=== PATIENT | male | born 1975 | race Hispanic/Latino ===

== ENCOUNTER 2021-07-29 18:04 | Emergency (ER) | payer SELFPAY ==
--- NOTE | 2021-07-29 19:03 | Emergency Department Report ---
HPI - General Chief Complaint: Abdominal Pain Time Seen by Provider: 07/29/21 18:42 - HPI HPI: Room 34 The patient is a 45-year-old male present with a chief complaint of flank pain. The patient states approximate 4.5 hours ago he developed sharp pain in his right flank that feels similar to previous kidney stones. The patient states his urine was brown in color but he denies dysuria. Patient denies history of fever or nausea/vomiting. Patient currently gives his pain a score 7.5/10. Patient states he took a tramadol 2.5 hours prior to arrival and states it is kicking in improving his pain ED Past Medical Hx - Past Medical History Hx Hypertension: Yes Additional medical history: KIDNEY STONE - Surgical History Past Surgical History?: No - Family History Family history: no significant - Social History Substance Use Type: None (Denies illicit drug use), Alcohol (Occasional) - Medications Home Medications: Home Medications Medication Instructions Recorded Confirmed Last Taken Type HYDROcodone/APAP 5-325 [Prospect 1 each PO Q6HR PRN #7 tablet 07/29/21 Unknown Rx 5/325] levoFLOXacin [Levaquin] 750 mg PO QDAY #7 tablet 07/29/21 Unknown Rx ED Review of Systems ROS: Stated complaint: POSS KIDNEY STONE Other details as noted in HPI Constitutional: denies: fever Eyes: denies: eye pain ENT: denies: throat pain Respiratory: no symptoms reported Cardiovascular: denies: chest pain Endocrine: no symptoms reported Gastrointestinal: abdominal pain. denies: nausea, vomiting Genitourinary: hematuria. denies: dysuria Musculoskeletal: denies: back pain Neurological: denies: headache Physical Exam - Physical Exam Vital Signs: Vital Signs 07/29/21 18:20 Temperature 97.5 F L Pulse Rate 88 Respiratory 20 Rate Blood Pressure 183/105 [Right] O2 Sat by Pulse 99 Oximetry Physical Exam: GENERAL: The patient is well-developed well-nourished male sitting on stretcher not appearing to be in acute distress. [] HEENT: Normocephalic. Atraumatic. Extraocular motions are intact. Patient has moist mucous membranes. NECK: Supple. Trachea midline CHEST/LUNGS: Clear to auscultation. There is no respiratory distress noted. HEART/CARDIOVASCULAR: Regular. There is no tachycardia. There is no gallop rub or murmur. ABDOMEN: Abdomen is soft, nontender. Patient has normal bowel sounds. There is no abdominal distention. SKIN: There is no rash. There is no edema. There is no diaphoresis. NEURO: The patient is awake, alert, and oriented. The patient is cooperative. The patient has no focal neurologic deficits. The patient has normal speech. GCS 15 MUSCULOSKELETAL: There is no CVA tenderness bilateral. There is no evidence of acute injury. ED Course Vital Signs 07/29/21 18:20 Temperature 97.5 F L Pulse Rate 88 Respiratory 20 Rate Blood Pressure 183/105 [Right] O2 Sat by Pulse 99 Oximetry ED Medical Decision Making - Lab Data Result diagrams: 07/29/21 19:04 07/29/21 19:04 Laboratory Tests 07/29/21 07/29/21 07/29/21 19:04 19:04 19:04 WBC 7.4 RBC 5.29 H Hgb 14.9 Hct 45.1 MCV 85 MCH 28 MCHC 33 RDW 14.8 Plt Count 282 Lymph % (Auto) 15.3 Montgomery % (Auto) 5.4 Eos % (Auto) 1.4 Baso % (Auto) 1.1 Lymph # (Auto) 1.1 L Montgomery # (Auto) 0.4 Eos # (Auto) 0.1 Baso # (Auto) 0.1 Seg Neutrophils % 76.8 H Seg Neutrophils # 5.7 Sodium 140 Potassium 3.6 Chloride 105.4 Carbon Dioxide 22 Anion Gap 16 BUN 15 Creatinine 1.0 Estimated GFR > 60 BUN/Creatinine Ratio 15 Glucose 135 H Calcium 9.5 Total Creatine Kinase 86 Urine Color Urine Turbidity Urine pH Ur Specific Stella Urine Protein Urine Glucose (UA) Urine Ketones Urine Blood Urine Nitrite Urine Bilirubin Urine Urobilinogen Ur Leukocyte Esterase Urine WBC (Auto) Urine RBC (Auto) U Epithel Cells (Auto) Urine Mucus 07/29/21 20:16 WBC RBC Hgb Hct MCV MCH MCHC RDW Plt Count Lymph % (Auto) Montgomery % (Auto) Eos % (Auto) Baso % (Auto) Lymph # (Auto) Montgomery # (Auto) Eos # (Auto) Baso # (Auto) Seg Neutrophils % Seg Neutrophils # Sodium Potassium Chloride Carbon Dioxide Anion Gap BUN Creatinine Estimated GFR BUN/Creatinine Ratio Glucose Calcium Total Creatine Kinase Urine Color Yellow Urine Turbidity Slightly-cloudy Urine pH 7.0 Ur Specific Stella 1.014 Urine Protein <15 mg/dl Urine Glucose (UA) Neg Urine Ketones Neg Urine Blood Lg Urine Nitrite Neg Urine Bilirubin Neg Urine Urobilinogen < 2.0 Ur Leukocyte Esterase Tr Urine WBC (Auto) 18.0 H Urine RBC (Auto) > 182.0 U Epithel Cells (Auto) 7.0 Urine Mucus 1+ - Radiology Data Radiology results: report reviewed (CT abdomen pelvis), image reviewed (CT abdomen pelvis) [facility] [address] [place] [address] Cat Scan Report Signed Patient: ELLE PAMLER MR#: [id number] : 1975 Acct:[id number] Age/Sex: 45 / M ADM Date: 07/29/21 Loc: ED Attending Dr: Ordering Physician: JOAQUINA SANZ MD Date of Service: 07/29/21 Procedure(s): CT abdomen pelvis wo con Accession Number(s): [id number] cc: JOAQUINA SANZ MD CT ABDOMEN AND PELVIS WITHOUT IV CONTRAST INDICATION: Right flank pain. COMPARISON: None available. TECHNIQUE: All CT scans at this facility use dose modulation, automated exposure control, iterative reconstruction or weight based dosing, when appropriate, to reduce radiation dose to as low as reasonably achievable. FINDINGS: Lung Bases: No significant abnormality. Skeletal System: No acute abnormality. ABDOMEN: Liver: No significant abnormality. Gallbladder: No significant abnormality. Bile Ducts: No significant abnormality. Adrenals: No significant abnormality. Right Kidney: There is a punctate nonobstructing calyceal stone. There is mild dilatation of the right renal collecting system and proximal right ureter. No right ureteral stone is seen. Left Kidney: There is a single punctate nonobstructing calyceal stone. Pancreas: No significant abnormality. Spleen: No significant abnormality. Upper GI tract: No significant abnormality. Lymph Nodes: No significant adenopathy. Aorta: No significant abnormality. Additional Findings: There is mild stranding/haziness in the me sentery with associated shotty nodes. PELVIS: Colon: No acute abnormality. Diverticulosis is noted. Urinary Bladder and Distal Ureters: No significant abnormality. Appendix: No significant abnormality. Lymph Nodes: No significant adenopathy. Additional Findings: None. IMPRESSION: 1. There is very mild right hydronephrosis. No right ureteral stone is seen. This could be due to a recently passed stone. CT without contrast is relatively insensitive for pyelonephritis. 2. Incidental findings, as above. Signer Name: Fred Mustafa MD Signed: 07/29/2021 7:34 PM Workstation Name: [id number] Transcribed By: HERON Dictated By: Fred Mustafa MD Electronically Authenticated By: Fred Mustafa MD Signed Date/Time: 07/29/211933 DD/ 29 TD/TT: Print Cancel - Differential Diagnosis Renal colic, pyelonephritis Critical care attestation.: If time is entered above; I have spent that time in minutes in the direct care of this critically ill patient, excluding procedure time. ED Disposition Clinical Impression: Renal colic on right side, UTI (urinary tract infection) Disposition: HOME / SELF CARE / HOMELESS Is pt being admited?: No Does the pt Need Aspirin: No Condition: Stable Instructions: Urinary Tract Infection, Adult, [id number], Renal Colic, [id number] Additional Instructions: Return to the emergency department should you develop worsening symptoms, inability to tolerate food or liquids, high fever or any other concerns Prescriptions: levoFLOXacin [Levaquin] 750 mg PO QDAY #7 tablet HYDROcodone/APAP 5-325 [Prospect 5/325] 1 each PO Q6HR PRN #7 tablet PRN Reason: Pain Referrals: LUCIA BARNEY MD [Staff Physician] - 3-5 Days (Dr. Barney is a urologist. Please follow-up with him for further evaluation) Time of Disposition: 22:21
[2021-07-29] MEDS ORDERED: ONDANSETRON 4 MG/2 ML INJ IM PRN (19:04)
[2021-07-29] MEDS ORDERED: fentaNYL 100 MCG/2 ML INJ IM PRN (19:04)
[2021-07-29] MEDS ORDERED: KETOROLAC 60 MG/2 ML INJ IM PRN (19:05)
[2021-07-29 19:30] LABS: Basophils # (Auto) 0.1 K/mm3 (0.0-0.1); Basophils % (Auto) 1.1 % (0.0-1.8); Eosinophils # (Auto) 0.1 K/mm3 (0.0-0.4); Eosinophils % (Auto) 1.4 % (0.0-4.3); Hematocrit 45.1 % (35.5-45.6); Hemoglobin 14.9 gm/dl (11.8-15.2); Lymphocytes # (Auto) 1.1 K/mm3 (1.2-5.4); Lymphocytes % (Auto) 15.3 % (13.4-35.0); Mean Corpuscular HGB Conc 33 % (32-34); Mean Corpuscular Volume 85 fl (84-94); Monocytes # (Auto) 0.4 K/mm3 (0.0-0.8); Monocytes % (Auto) 5.4 % (0.0-7.3); Platelet Count 282 K/mm3 (140-440); Red Blood Count 5.29 M/mm3 (3.65-5.03); Red Cell Distribution Width 14.8 % (13.2-15.2)
--- NOTE | 2021-07-29 19:38 | Cat Scan Report ---
CT ABDOMEN AND PELVIS WITHOUT IV CONTRAST INDICATION: Right flank pain. COMPARISON: None available. TECHNIQUE: All CT scans at this facility use dose modulation, automated exposure control, iterative reconstructi on or weight based dosing, when appropriate, to reduce radiation dose to as low as reasonably achieva ble. FINDINGS: Lung Bases: No significant abnormality. Skeletal System: No acute abnormality. ABDOMEN: Liver: No significant abnormality. Gallbladder: No significant abnormality. Bile Ducts: No significant abnormality. Adrenals: No significant abnormality. Right Kidney: There is a punctate nonobstructing calyceal stone. There is mild dilatation of the righ t renal collecting system and proximal right ureter. No right ureteral stone is seen. Left Kidney: There is a single punctate nonobstructing calyceal stone. Pancreas: No significant abnormality. Spleen: No significant abnormality. Upper GI tract: No significant abnormality. Lymph Nodes: No significant adenopathy. Aorta: No significant abnormality. Additional Findings: There is mild stranding/haziness in the mesentery with associated shotty nodes. PELVIS: Colon: No acute abnormality. Diverticulosis is noted. Urinary Bladder and Distal Ureters: No significant abnormality. Appendix: No significant abnormality. Lymph Nodes: No significant adenopathy. Additional Findings: None. IMPRESSION: 1. There is very mild right hydronephrosis. No right ureteral stone is seen. This could be due to a recently passed stone. CT without contrast is relatively insensitive for pyelonephritis. 2. Incidental findings, as above. Signer Name: Fred Mustafa MD Signed: 07/29/2021 7:34 PM Workstation Name: [id number]
[2021-07-29 19:39] LABS: BUN/Creatinine Ratio 15; Blood Urea Nitrogen 15 mg/dL (9-20); Calcium 9.5 mg/dL (8.4-10.2); Hemolysis Index 10
[2021-07-29 20:32] LABS: Bilirubin,Urine NEG (Negative); Blood,Urine LG (Negative); Color,Urine Yellow (Yellow); Mucus,Urine 1+ /HPF; Protein,Urine <15 mg/dL mg/dL (Negative); Urobilinogen,Urine < 2.0 mg/dL (<2.0)
[2021-07-29 20:34] LABS: RBC,Urine > 182.0 /HPF (0.0-6.0)
[2021-07-29 21:33] VITALS: BP 147/100
== END 2021-07-29 22:38 | disposition home or self-care (01) ==
LOC: ED 18:04
DX: N23 Unspecified renal colic (principal); N39.0 Urinary tract infection, site not specified; I10 Essential (primary) hypertension; Z72.89 Other problems related to lifestyle; Z88.0 Allergy status to penicillin
CPT/HCPCS: 36415; 74176; 80048; 81001; 82550; 85025; 87086; 96372; 99284; J3010